=== PATIENT | female | born 1985 | race Caucasian/White ===

== ENCOUNTER 2017-07-30 00:19 | Emergency (ER) | payer OTHER ==
[~2017-07-30] VITALS: Ht 165.1 cm; Wt 62.0 kg
[2017-07-30] MEDS ORDERED: KETOROLAC 30 MG/1 ML ONE (00:47)
[2017-07-30] MEDS ORDERED: PROCHLORPERAZINE 5 MG/ML, 2ML ONE (00:47)
[2017-07-30] MEDS ORDERED: DIPHENHYDRAMINE 50 MG/ML, 1ML ONE (00:48)
[2017-07-30] MEDS ORDERED: DIPHENHYDRAMINE 50 MG/ML, 1ML IVPush ONE (01:00)
[2017-07-30] MEDS ORDERED: SODIUM CHLORIDE 0.9% 1,000ML IVBOLUS ONE (01:00)
[2017-07-30] MEDS ORDERED: PROCHLORPERAZINE 5 MG/ML, 2ML IVPush ONE (01:00)
[2017-07-30] MEDS ORDERED: KETOROLAC 30 MG/1 ML IVPush ONE (01:00)
[2017-07-30] MEDS ORDERED: SODIUM CHLORIDE FLUSH 10ML SYR IVF ONE (01:00)
[2017-07-30 01:21] LABS: HEMOGLOBIN 14.2 g/dL (11.7-16.4); WHITE BLOOD COUNT 7.5 x10^3/uL (3.4-10)
[2017-07-30 01:22] LABS: ASPARTATE AMINO TRANSFERASE 18 U/L (15-37); BLOOD UREA NITROGEN 10 mg/dL (7-18)
[2017-07-30 02:50] VITALS: BP 93/51
== END 2017-07-30 02:52 | disposition home or self-care (01) ==
LOC: ED 02:40
DX: G44.219 Episodic tension-type headache, not intractable (principal); R10.13 Epigastric pain
CPT/HCPCS: 36415; 70450; 76700; 80053; 81003; 83690; 84703; 85025; 96361; 96374; 96375; 99285; J0780; J1200; J1885; J7030